=== PATIENT | male | born 2000 | race Caucasian/White ===

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

== ENCOUNTER 2021-04-13 00:40 | Emergency (ER) | payer MEDICAID, SELFPAY ==
--- NOTE | ~2021-04-13 | XR_ITS ---
EXAMINATION: XR CHEST CLINICAL INFORMATION: Cough COMPARISON: 05/05/2020 TECHNIQUE: Frontal view of the chest was obtained. FINDINGS: Lungs are hypoinflated. No focal consolidation is seen. No evidence of pneumothorax, pleural effusion, or pulmonary edema. The cardiomediastinal contour is unremarkable. No acute osseous findings are seen. XR/XR chest 1V IMPRESSION: No acute cardiopulmonary findings.
[2021-04-13 01:13] VITALS: BP 99/49; PULSE 80; RESP 16; TEMP 36.6; O2SAT 97; BMI 21.5
[2021-04-13 01:23] LABS: COVID-19 Test Negative (Negative)
--- NOTE | 2021-04-13 02:12 | ED_ITS ---
HPI - SOB/Dyspnea General Chief Complaint: Dyspnea Stated Complaint: SOB Time Seen by Provider: 04/13/21 02:12 Source: patient Mode of arrival: ambulatory History of Present Illness HPI Narrative: 21-year-old male with history of asthma and now presents with increasing shortness of breath despite using albuterol inhaler and otherwise denies any fever, chills, sore throat, cough, GI or symptoms. Patient describes corresponding chest tightness. Related Data Allergies Allergy/AdvReac Type Severity Reaction Status Date / Time No Known Allergies Allergy Verified 07/05/20 16:40 Review of Systems Review of Systems: Pertinent positives and negatives as stated in HPI 10 point review systems is otherwise negative. PMFSH Past Medical History Source: nursing notes reviewed Medical History Asthma Social History Social History Alcohol intake: unknown Patient Tobacco Use Status: Current everyday Tobacco user Smoked in Last 30 Days: Yes Use of substances other than those prescribed or required for medical reasons: No Substance Use Type: Marijuana Advance Directives: No Advance Directives Information Provided: No Physical Exam Vital Signs: Vital Signs: Last Vital Signs Temp 97.8 F 04/13/21 01:13 Pulse 65 04/13/21 02:39 Resp 18 04/13/21 03:08 BP 99/49 L 04/13/21 01:13 Pulse Ox 97 04/13/21 01:13 Body Mass Index 21.5 VITAL SIGNS: Reviewed. GENERAL: Well developed, well nourished, in no acute distress. HEAD: Normocephalic/atraumatic EYES: PERRLA, EOMI OROPHARYNX: no oral lesions noted, posterior pharynx clear and non-erythematous without noted tonsillar enlargement/erythema/exudates NECK: Supple, no adenopathy LUNGS: Decreased breath sounds, minimal wheeze, no tachypnea SpO2<97> CARDIOVASCULAR: Regular rate and rhythm without noted murmurs ABDOMEN: Soft, non-tender, non-distended with bowel sounds. NEUROLOGIC: Alert and oriented x 4. Course Course Course Narrative: 21-year-old male with history and clinical presentation suggestive of mild asthma exacerbation, but will test for COVID-19 as well. Review of all investigations negative for acute findings and patient was provided with albuterol treatment and on re-evaluation states that he is feeling much better. On auscultation patient now presenting with improved air movement and no evidence of wheezing. Patient was instructed to use his inhaler consistently for the next 24-48 hours and follow-up with his primary care provider. MDM - SOB/Dyspnea Lab Data Labs: Lab Results 04/13/21 Range/Units 00:54 COVID-19 (DENIZ) Negative (Negative) COVID-19 Clin Com See Note Discharge Plan Discharge Clinical Impression: Asthma with exacerbation Patient Disposition: Home, Self-Care Instructions: Asthma (ED) Additional Instructions: 1. Use your albuterol inhaler, 2 puffs, every 4-6 hours for the next 24 hours to ensure continued relief. 2. Follow-up with your primary care provider in the next 1-2 days for re- evaluation and further outpatient management. Return to the ER for acute worsening of symptoms. Referrals: Physician,None [Primary Care Provider] - 2 days
[2021-04-13] MEDS: Albuterol Sulfate (0.083%) 2.5 MG/3 ML VIAL.NEB 7.5 MG INHALE (02:38)
[2021-04-13 02:39] VITALS: PULSE 65; O2SAT 98
--- NOTE | 2021-04-13 03:06 | PC.NURSE ---
pt a&O, no wheezing or retraction. No sign of respiratory distress. pt ordered a respiratory treatment. pt resting quietly
[2021-04-13 03:08] VITALS: RESP 18
== END 2021-04-13 04:09 | disposition home or self-care (01) ==
PROVIDERS: Emergency Provider Student in an Organized Health Care Education/Training Program
DX: J45.901 Unspecified asthma with (acute) exacerbation (principal); Z20.822 Contact with and (suspected) exposure to COVID-19; F17.210 Nicotine dependence, cigarettes, uncomplicated; F12.90 Cannabis use, unspecified, uncomplicated; Z79.899 Other long term (current) drug therapy
CPT/HCPCS: 36415; 71045; 87635; 94640; 94644; 99284

== ENCOUNTER 2022-07-11 10:27 | Emergency (ER) | payer MEDICAID, SELFPAY ==
[2022-07-11 10:33] VITALS: BP 124/67; PULSE 108; RESP 18; TEMP 36.6; O2SAT 98; BMI 22.9
--- NOTE | 2022-07-11 10:43 | ED.NAVMDI ---
HPI - Nausea/Vomiting/Diarrhea General Chief complaint: Abdominal Pain Stated complaint: not feeling well, nauseous Time Seen by Provider: 07/11/22 10:39 Source: patient Mode of arrival: ambulatory Limitations: no limitations History of Present Illness HPI Narrative: 22 yo male presents to the ER for evaluation of nausea, diffuse abdominal ache and body aches along with subjective fevers that started yesterday morning. Patient states after he ate a bagel and smoked his nicotine vape he had sudden onset of not feeling well. He was nauseous with an upset stomach. He vomited once yesterday and has felt like he has had a fever. He has not taken his temperature. He has back and body aches along with some mild headache. He states he has diffuse abdominal discomfort that comes and goes along with persistent nausea. He was able to drink some debbie tania today but that is it. He denies any diarrhea, last BM was 2 days ago and was normal. He does not feel constipated. No known sick contacts. He has not vaccinated for COVID or flu. MD elicited complaint: nausea, vomiting and abdominal pain Onset (ago): day(s) (1) Description of vomiting: food contents Associated nausea: Yes Associated abdominal pain: Yes Location of pain: diffuse Radiation: diffuse Pain consistency: intermittent Severity: moderate Quality: cramping Exacerbating factors: none Relieving factors: none Associated symptoms: myalgias, fever/chills, headaches, loss of appetite, malaise, nausea/vomiting and fatigue Related Data Previous Rx's Medication Instructions Recorded ondansetron 4 mg disintegrating 4 mg PO Q8H PRN nausea and 07/11/22 tablet vomiting #7 tabs Allergies Allergy/AdvReac Type Severity Reaction Status Date / Time No Known Allergies Allergy Verified 07/11/22 10:33 Review of Systems Review of Systems: Constitutional: + Fever, No Chills ENT/Mouth: No sore throat, No Rhinorrhea, No Swallowing Difficulty Cardiovascular: No Chest Pain, No SOB, No Orthopnea, No Edema Respiratory: No Cough, No Sputum, No Wheezing, No dyspnea Gastrointestinal: + Nausea, + Vomiting, No Diarrhea, + abdominal Pain Genitourinary: No Dysuria, No Urinary Frequency, No Hematuria Musculoskeletal: No joint pain, +Myalgias Skin: No Skin Lesions, No rash Neuro: No Weakness, No Numbness, No Dizziness, +Headache Heme/Lymph: No Bruising, No Lymphadenopathy Endocrine: No Polyuria, No Polydipsia Gastrointestinal: Gastrointestinal: Reports nausea PMFSH Past Medical History Medical History Asthma Social History Social History Alcohol intake: unknown Patient Tobacco Use Status: Current everyday Tobacco user Substance Use Type: Marijuana Advance Directives: No Advance Directives Information Provided: Yes Physical Exam Vital Signs: Vital Signs: Last Vital Signs Temp 98 F 07/11/22 10:33 Pulse 108 H 07/11/22 10:33 Resp 16 07/11/22 10:59 BP 124/67 07/11/22 10:33 Pulse Ox 98 07/11/22 10:33 O2 Del Method 07/11/22 10:33 BMI result Body Mass Index 22.9 Appearance: Alert. Oriented X3. No acute distress. Eyes: Pupils equal, round and reactive to light. ENT: Pharynx normal. Moist mucus membranes Neck: Normal inspection. Neck supple. CVS: Normal heart rate and rhythm. Pulses normal. Respiratory: No respiratory distress. Breath sounds normal. Abdomen: Soft and nontender. +BS x4 Skin: Skin warm and dry. Normal skin color. Normal skin turgor. No rashes. Extremities: No lower extremity edema. Neuro: Oriented X 3. Grossly normal, nonfocal. Course Course Course Narrative: 22-year-old otherwise healthy male presents to the ER for evaluation of nausea, vomiting x1, upset stomach, body aches and subjective fevers. Slightly tachycardic but afebrile on arrival. Symptoms seem to be viral. Will check lab workup, COVID swab, flu swab. Hold off on abdominal imaging for now given unremarkable examination. Reevaluation(s) Reevaluation #1: Labs are unremarkable. Patient found to be COVID positive. SpO2 90% on room air. He is afebrile. He is tolerating debbie tania. Comfortable discharge home with p.r.n. Zofran and supportive care. Return precautions were discussed. Stable for DC. Medications Administered Discontinued Medications Generic Name Dose Route Start Last Admin Trade Name Freq PRN Reason Stop Dose Admin Lactated Ringer's 1,000 mls @ 999 mls/hr 07/11/22 10:45 07/11/22 10:57 Lr IV 07/11/22 11:45 999 mls/hr .Q1H1M TIFFANIE Administration Ondansetron HCl 4 mg 07/11/22 10:39 07/11/22 10:56 Ondansetron Hcl 4 Mg/2 Ml Vial IVPUSH 07/11/22 10:40 4 mg ONCE ONE Administration MDM - Nausea/Vomiting/Diarrhea Lab Data Result diagrams: 07/11/22 10:54 07/11/22 10:54 Labs: Lab Results 07/11/22 07/11/22 07/11/22 Range/Units 10:54 10:54 10:54 WBC 10.9 H (4.8-10.8) X10*3/uL RBC 5.33 (4.60-5.80) X10*6/uL Hgb 15.0 (14.0-18.0) g/dl Hct 44.3 (42.0-52.0) % MCV 83.1 (80.0-98.0) fL MCH 28.1 (27.0-33.0) pg MCHC 33.9 (31.0-36.0) g/dl RDW 11.8 (11.0-16.0) % Plt Count 260 (160-400) X10*3/uL MPV 9.4 (9.4-12.4) fL Immature Gran % (Auto) 0.4 (0.0-0.4) % Neut % (Auto) 81.4 H (45-73) % Lymph % (Auto) 5.3 L (20-40) % [place] % (Auto) 12.4 H (2-11) % Eos % (Auto) 0.1 (0-4) % Baso % (Auto) 0.4 (0-2) % Lymph # (Auto) 0.6 L (1.2-4.9) X10*3/uL [place] # (Auto) 1.4 H (0.1-1.2) X10*3/uL Eos # (Auto) 0.0 (0.0-0.4) X10*3/uL Baso # (Auto) 0.0 (0.0-0.2) X10*3/uL Abs Immat Gran (auto) 0.04 H (0.00-0.03) X10*3/uL Absolute Neuts (auto) 8.9 H (2.0-8.3) x10*3/uL Absolute Nucleated RBC 0.000 (0.0-0.012) X10*3/uL Nucleated RBC % (auto) 0.0 (0.0-0.2) /100WBC Sodium 138 (135-145) mmol/L Potassium 3.8 (3.3-5.1) mmol/L Chloride 103 (96-108) mmol/L Carbon Dioxide 25 (22-29) mmol/L Anion Gap 14 (12-20) BUN 6 L (9-16) mg/dL Creatinine 0.92 (0.5-1.4) mg/dL Estim Creat Clear Calc 130.3 Estimated GFR > 60 Random Glucose 105 (60-115) mg/dL Calcium 9.3 (8.4-10.2) mg/dL Magnesium 1.7 (1.6-2.6) mg/dL Total Bilirubin 0.7 (0.0-1.0) mg/dL Direct Bilirubin 0.3 (0.0-0.5) mg/dL AST 16 (5-37) U/L ALT 33 (0-40) U/L Alkaline Phosphatase 78 (39-117) U/L Total Protein 6.9 (6.5-8.0) g/dL Albumin 4.3 (3.5-5.0) g/dL Lipase 14 (8-78) U/L Ethyl Alcohol < 10 mg/dL COVID-19 (DENIZ) (Negative) COVID-19 Clin Com Influenza Type A (MERYL) Negative (Negative) Influenza Type B (MERYL) Negative (Negative) Influenza A & B Note See Note 07/11/22 Range/Units 10:54 WBC (4.8-10.8) X10*3/uL RBC (4.60-5.80) X10*6/uL Hgb (14.0-18.0) g/dl Hct (42.0-52.0) % MCV (80.0-98.0) fL MCH (27.0-33.0) pg MCHC (31.0-36.0) g/dl RDW (11.0-16.0) % Plt Count (160-400) X10*3/uL MPV (9.4-12.4) fL Immature Gran % (Auto) (0.0-0.4) % Neut % (Auto) (45-73) % Lymph % (Auto) (20-40) % [place] % (Auto) (2-11) % Eos % (Auto) (0-4) % Baso % (Auto) (0-2) % Lymph # (Auto) (1.2-4.9) X10*3/uL [place] # (Auto) (0.1-1.2) X10*3/uL Eos # (Auto) (0.0-0.4) X10*3/uL Baso # (Auto) (0.0-0.2) X10*3/uL Abs Immat Gran (auto) (0.00-0.03) X10*3/uL Absolute Neuts (auto) (2.0-8.3) x10*3/uL Absolute Nucleated RBC (0.0-0.012) X10*3/uL Nucleated RBC % (auto) (0.0-0.2) /100WBC Sodium (135-145) mmol/L Potassium (3.3-5.1) mmol/L Chloride (96-108) mmol/L Carbon Dioxide (22-29) mmol/L Anion Gap (12-20) BUN (9-16) mg/dL Creatinine (0.5-1.4) mg/dL Estim Creat Clear Calc Estimated GFR Random Glucose (60-115) mg/dL Calcium (8.4-10.2) mg/dL Magnesium (1.6-2.6) mg/dL Total Bilirubin (0.0-1.0) mg/dL Direct Bilirubin (0.0-0.5) mg/dL AST (5-37) U/L ALT (0-40) U/L Alkaline Phosphatase (39-117) U/L Total Protein (6.5-8.0) g/dL Albumin (3.5-5.0) g/dL Lipase (8-78) U/L Ethyl Alcohol mg/dL COVID-19 (DENIZ) Positive A (Negative) COVID-19 Clin Com See Note Influenza Type A (MERYL) (Negative) Influenza Type B (MERYL) (Negative) Influenza A & B Note Critical Care Time Critical Care Time Critical Care Time: No Discharge Plan Discharge Clinical Impression: COVID-19 Patient Disposition: Home, Self-Care Instructions: Covid-19 Viral Syndrome and Novel Coronavirus (ED) Hey/Ath Additional Instructions: You were found to be COVID-19 POSITIVE today. Your lab workup and oxygen levels were normal. Rest. Drink plenty of fluids. Do not go out in public for the next 9-10 days, as you are not vaccinated. Take the prescribed nausea medication as needed for nausea and upset stomach. Stick to a bland diet where not feeling well. Take over the counter cold/flu medications as needed for your symptoms. Take Tylenol and/or Motrin as needed for fevers and body aches. If you develop new or worsening symptoms call 911 or come back to the ER for further evaluation. Prescriptions: New ondansetron 4 mg tablet,disintegrating 4 mg PO Q8H PRN (Reason: nausea and vomiting) Qty: 7 0RF Stand Alone Forms: Work/School Release
[2022-07-11] MEDS: ondansetron HCL 4 MG/2 ML VIAL IVPUSH (10:56)
[2022-07-11] MEDS: Lactated Ringers 1,000 ML 999 ML IV (10:57)
[2022-07-11 10:59] VITALS: RESP 16
[2022-07-11 10:59] LABS: Basophils Percent Auto 0.4 % (0-2); Eosinophils Percent Auto 0.1 % (0-4); Hematocrit 44.3 % (42.0-52.0); Imm Gran Abs Auto 0.04 X10*3/uL (0.00-0.03); Imm Gran Pct Auto 0.4 % (0.0-0.4); Lymphocytes Absolute Auto 0.6 X10*3/uL (1.2-4.9); Lymphocytes Percent Auto 5.3 % (20-40); MANUAL DIFF FLAG NO; Mean Corpuscular HGB Conc 33.9 g/dl (31.0-36.0); Mean Corpuscular Hemoglobin 28.1 pg (27.0-33.0); Mean Corpuscular Volume 83.1 fL (80.0-98.0); Mean Platelet Volume 9.4 fL (9.4-12.4); Monocytes Absolute Auto 1.4 X10*3/uL (0.1-1.2); Monocytes Percent Auto 12.4 % (2-11); Neutrophils Absolute Auto 8.9 x10*3/uL (2.0-8.3); Neutrophils Percent Auto 81.4 % (45-73); Platelet Count 260 X10*3/uL (160-400); Red Blood Count 5.33 X10*6/uL (4.60-5.80); Red Cell Distribution Width 11.8 % (11.0-16.0); White Blood Count 10.9 X10*3/uL (4.8-10.8)
[2022-07-11 11:18] LABS: COVID-19 Test Positive (Negative); IDNOW Serial# 16C4AD1C
[2022-07-11 11:21] LABS: IDNOW Serial# BCCEAD1C; Influenza A Negative (Negative); Influenza B2 Negative (Negative)
[2022-07-11 11:49] LABS: Alanine Aminotransferase 33 U/L (0-40); Albumin Level 4.3 g/dL (3.5-5.0); Alkaline Phosphatase 78 U/L (39-117); Anion Gap 14 (12-20); Aspartate Amino Transferase 16 U/L (5-37); Bilirubin Direct 0.3 mg/dL (0.0-0.5); Bilirubin Total 0.7 mg/dL (0.0-1.0); Blood Urea Nitrogen 6 mg/dL (9-16); Calcium 9.3 mg/dL (8.4-10.2); Carbon Dioxide 25 mmol/L (22-29); Chloride 103 mmol/L (96-108); Creatinine Clr Calc Pharmacy 130.3; Estimated Glomerular Filt Rate > 60; Ethanol < 10 mg/dL; Glucose Random 105 mg/dL (60-115); Lipase 14 U/L (8-78); Magnesium 1.7 mg/dL (1.6-2.6); Potassium 3.8 mmol/L (3.3-5.1); Sodium 138 mmol/L (135-145); Total Protein 6.9 g/dL (6.5-8.0)
== END 2022-07-11 12:01 | disposition home or self-care (01) ==
PROVIDERS: Physician Assistant; Emergency Provider Emergency Medicine
DX: U07.1 COVID-19 (principal); F17.200 Nicotine dependence, unspecified, uncomplicated; F12.90 Cannabis use, unspecified, uncomplicated
CPT/HCPCS: 36415; 80048; 80076; 82077; 83690; 83735; 85025; 87502; 87635; 96374; 99284; J2405

== ENCOUNTER 2024-02-05 15:52 | Outpatient (REF) | payer MEDICAID, SELFPAY ==
[2024-02-05 17:56] LABS: C Reactive Protein 1.19 mg/dL (< or = 0.50)
[2024-02-05 17:57] LABS: Rheumatoid Factor < 13.0 IU/mL (<15.0)
[2024-02-05 18:21] LABS: Erythrocyte Sedimentation Rate 6 MM/HR (0-15)
[2024-02-05 18:26] LABS: Influenza A PCR NEGATIVE (Negative); Influenza B PCR NEGATIVE (Negative); Resp Syncy Virus RNA Qual PCR NEGATIVE (Negative); SARS COV2 PCR INHOUSE NEGATIVE (Negative)
[2024-02-09 13:03] LABS: Lyme Abs Screen <0.90 index
[2024-02-09 13:58] LABS: Cyclic Citrullinated Peptide <16 UNITS
== END 2024-02-05 15:53 | disposition home or self-care (01) ==
LOC: HO.CHCLDS 15:52
PROVIDERS: Visit Provider Family Medicine
DX: M25.50 Pain in unspecified joint (principal)
CPT/HCPCS: 0241U; 85652; 86140; 86200; 86431; 86617; 86618

== ENCOUNTER 2024-04-22 14:03 | Outpatient (REF) | payer MEDICAID, SELFPAY ==
[2024-04-22 16:49] LABS: CT PCR NOT DETECTED (Not Detect.); NG PCR NOT DETECTED (Not Detect.)
== END 2024-04-22 14:04 | disposition home or self-care (01) ==
LOC: HO.CHCLDS 14:03
PROVIDERS: Visit Provider Family Medicine
DX: Z00.00 Encounter for general adult medical examination without abnormal findings (principal)
CPT/HCPCS: 87491; 87591

== ENCOUNTER 2025-08-05 09:34 | Outpatient (REF) | payer MEDICAID, SELFPAY ==
--- OUTSIDE RECORDS SUMMARY | 2025-08-05 08:30 | XMS_ITS | Encounter Summary ---
Author Organization [employer] Address [address] [facility] [address] [place] [address] Care Team Providers Care Bilingual Instructor Name Role Phone Mandy Bailey MD Primary Care Provider [phone] Sarita Chavez Unavailable Reason for Visit * Reason Comments Joint Pain Encounter Details Date Type Department Care Team ([facility] Contact Info) Description 08/05/2025 8:30 AM EST Office Visit [facility] PEDS [address] [place], [place] [phone] Alexandra Rivera FNP [address] [place], [place] [phone] STD exposure (Primary Dx); Viral illness Social History Tobacco Use Types Packs/Day Years Used Date Smoking Tobacco: Never Passive Smoke Exposure: Never Smokeless Tobacco: Never Tobacco Cessation:Counseling Given: Not Answered Alcohol Use Standard Drinks/Week Comments Never 0 (1 standard drink = 0.6 oz pur e alcohol) Depression Answer Date Recorded Patient Health Questionnaire-9 Score 3 12/20/2024 Patient Health Questionnaire-9 Score 3 12/20/2024 Last PHQ-9: Questionnaire Data Not on file 0 12/20/2024 Housing Stability Answer Date Recorded What is your housing situation today? I have ozzie romero 08/05/[address] you li ve. Do you have problems with any of the following? None of the above 08/05/2025 Food Insecurity Answer Date Recorded Within the past 12 months, y ou worried that your food would run out before you got money to buy more: Never True 08/05/2025 Within the past 12 months,th e food you bought just didn't last and you didn't have enough money to get more: Never True Transportation Answer Date Recorded In the past 12 months, has l ack of transportation kept you from medical appts, meetings, work or from getting things needed for daily living? No 08/05/2025 Utilities Answer Date Recorded In the past 12 months, has t he electric, gas, oil or water company threatened to shut off services in your home? No 08/05/2025 Depression Answer Date Recorded Patient Health Questionnaire-2 Score 0 12/20/2024 Internet Access Answer Date Recorded Internet Access Q1 Yes 08/05/2025 Internet Access Q2 Not on file 08/05/2025 Sex and Gender Information Value Date Recorded Sex Assigned at Male 06/17/2022 10:21 AM EDT Legal Sex Male 10:21 AM EDT Gender Identity Choose not to disclose 10:21 AM EDT Sexual Orientation Choose not to disclose 2021 10:21 AM EDT documented as of this encounter Last Filed Vital Signs Vital Sign Reading Time Taken Comments Blood Pressure 124/68 08/05/2025 8:42 AM EST Pulse 87 08/05/2025 8:42 AM EST Temperature 37.1 C (98.8 F) 08/05/2025 8:42 AM EST Respiratory Rate 20 08/05/2025 8:42 AM EST Oxygen Saturation - - Inhaled Oxygen Concentration - - Weight 74.8 kg (165 lb) 08/05/2025 8:42 AM EST Height 175.9 cm (5' 9.25 ) 08/05/2025 8:42 AM ES T Body Mass Index 24.19 08/05/2025 8:42 AM EST documented in this encounter Plan of Treatment Scheduled Orders Name Type Priority Associated Diagnoses Orde r Schedule HIV-1/2 Antigen and Antibodies, Fourth Generation, with Reflexes Lab Routine STD exposure Expected: 08/05/2025 (Approximate), Expires: 08/05/2026 RPR (Monitor) with Reflex to Titer Lab Routine STD exposure Expected: 08/05/2025, Expires: 08/05/2026 Hepatitis C Antibody with Reflex to HCV, RNA, Quantitative, Real-Time PCR Lab Routine STD exposure Expected: 08/05/2025, Expires: 08/05/2026 Chlamydia/Trichomonas/Neis seria gonorrhoeae, PCR, Urine Lab Routine STD exposure Expected: 08/05/2025 (Approximate), Expires: 08/05/2026 documented as of this encounter Procedures Procedure Name Priority Date/Time Associated Diagnosis Comments POCT INFLUENZA A Routine 08/05/2025 9:53 AM EST Viral illness POCT INFLUENZA B Routine 08/05/2025 9:52 AM EST Viral illness POCT RAPID COVID ANTIGEN Routine 08/05/2025 9:50 AM EST Viral illness documented in this encounter Results * POCT Rapid Influenza A OSOM (08/05/2025 9:53 AM EST) [facility] Rapid Influenza A Ag Negative Negative, Indeterminate QC Media Lot # [id number] Lot# Expiration Date Swab Nasopharyngeal structure / Unknown 08/05/2025 9:53 AM EST us Morris Phalen ACCOUNT FINANCIAL MANAGER POINT OF CARE TEST ENTER/EDIT ORDERABLES Final Result * POCT Rapid Influenza B OSOM (08/05/2025 9:52 AM EST) [facility] Rapid Influenza B Ag Negative Negative, Indeterminate QC Media Lot # [id number] Lot# Expiration Date , Swab 08/05/2025 9:52 AM EST us Alexanrda Rivera ACCOUNT FINANCIAL MANAGER POINT OF CARE TEST ENTER/EDIT ORDERABLES Final Result * POCT Rapid Covid-19 BinaxNOW (08/05/2025 9:50 AM EST) [facility] Rapid COVID Ag Negative QC Media Lot # [id number] Lot# Expiration Date ,026 Swab 08/05/2025 9:50 AM EST Alexandra Phalen ACCOUNT FINANCIAL MANAGER POINT OF CARE TEST ENTER/EDIT ORDERABLES Final Result documented in this encounter Visit Diagnoses Diagnosis STD exposure- Primary Viral illness Unspecified viral infection, in conditions classified elsewhere and of unspecified site documented in this encounter Additional Health Concerns Assessment Noted Time PHQ-9 Depression Total Score: 3 12/21/19 25 11:53 AM EDT documented as of this encounter Care Teams Bilingual Instructor Relationship Specialty Start Date End Date Mandy Bailey MD [address] [place] [address] PCP - General Family Medicine 01/04/22 Sarita Chavez 07/29/25 Yenni Arthur Program MgrSeismograph Operator 05/23/25 documented as of this encounter
--- OUTSIDE RECORDS SUMMARY | 2025-08-05 10:21 | XMS_ITS | Encounter Summary ---
Author Organization [employer] Address [address] [place] [address] Care Team Providers Care Seam Rubbing Machine Operator Name Role Phone Mandy Bailey MD Primary Care Provider [phone] Sarita Chavez Unavailable Encounter Details Date Type Department Care Team (Latest Contact Info) Description 08/05/2025 Travel Social History Tobacco Use Types Packs/Day Years Used Date Smoking Tobacco: Never Passive Smoke Exposure: Never Smokeless Tobacco: Never Alcohol Use Standard Drinks/Week Comments Never 0 [...] AM EDT documented as of this encounter Plan of Treatment Not on file documented as of this encounter Visit Diagnoses Not on filedocumented in this encounter Additional Health Concerns Assessment Noted Time PHQ-9 Depression Total Score: 3 12/21/19 11:53 AM EDT documented as of this encounter Care Teams Seam Rubbing Machine Operator Relationship Specialty Start Date End Date Mandy Bailey MD [address] [place] [id number] PCP - General Family Medicine 01/04/22 Sarita Chavez 07/29/25 Yenni Arthur Bending Machine Set Up OperatorGlass Smoother 05/23/25 documented as of this encounter
--- OUTSIDE RECORDS SUMMARY | 2025-08-05 10:21 | XMS_ITS | Encounter Summary ---
Author Organization [employer] Address [address] [facility] [address] [place] [address] Care Team Providers Care Pt Skilled Name Role Phone Mandy Bailey MD Primary Care Provider [phone] Sarita Chavez Unavailable Reason for Visit * Reason Onset Date Comments Nurse Triage 08/02/2025 Encounter Details Date Type Department Care Team ([facility] st Contact Info) Description 08/02/2025 Telephone [facility] MED [facility] PEDS [address] [place], [place] [phone] Mandy Bailey MD [address] [place] [address] Nurse Triage Social History Tobacco Use Types Packs/Day Years [...] is your housing situation today? I have ozziepeyman romero 06/17/[address] you li ve. Do you have problems with any of the following? None of the above 06/17/2023 Food Insecurity Answer Date Recorded Within the past 12 months, y ou worried that your food would run out before you got money to buy more: Never True 06/17/2023 Within the past 12 months,th e food you bought just didn't last and you didn't have enough money to get more: Never True Transportation Answer Date Recorded In the past 12 months, has l ack of transportation kept you from medical appts, meetings, work or from getting things needed for daily living? No 06/17/2023 Utilities Answer Date Recorded In the past 12 months, has t he electric, gas, oil or water company threatened to shut off services in your home? No 06/17/2023 Depression Answer Date Recorded Patient Health Questionnaire-2 Score 0 12/20/2024 Sex and Gender Information Value Date Recorded Sex Assigned at Male 06/17/2022 10:21 AM EDT Legal Sex Male 10:21 AM EDT Gender Identity Choose not to disclose 10:21 AM EDT Sexual Orientation Choose not to disclose 2021 10:21 AM EDT documented as of this encounter Miscellaneous Notes * Telephone Encounter - Ale Arroyo RN - 08/02/2025 10:59 AM EST Pt presented to [facility] 07/28/25 for evaluation for resolved chest pain x 3 days. ECG normal sinus rhythm. Pt left AMA prior to evaluation. T/C to pt who denies current symptoms. Reports that starting last week, he has been having intermittent 5/10 upper chest pain which happens on the right and left side and radiates to his fingers bilaterally. Pt states that he does not have sob, vomiting or any other symptoms when this occurs. Reports he feels this more when he is lying down. Reports pmh of anxiety. Reports there is mold in his home and he is not sure if this is related. Pt agrees to evaluation with [facility] provider 08/05/25. ED precautions reviewed. Encouraged pt to call if symptoms return or w orsen. Protocol Used: No Protocol Available (Adult) Protocol-Based Disposition: See in Office or Video Visit within 2 Weeks Video visit offer not recorded Positive Triage Question: * Nursing judgment * All higher-acuity triage questions were negative. Care Advice Discussed: * Reasons To Call Back - New symptoms develop - You become worse * Telephone Encounter - Sarkis Duncan - 08/02/2025 9:16 AM EST Patient calling to report ED visit on : Date: 07/28 Hospital: [facility] Seen for: arm pain , chest pain Symptomatic Yes *if yes message should go to Triage Patient advised will forward to team nurse for follow up Contact pt at [phone] documented in this encounter Plan of Treatment Not on file documented as of this encounter Visit Diagnoses Not on filedocumented in this encounter Additional Health Concerns Assessment Noted Time PHQ-9 Depression Total Score: 3 12/21/19 11:53 AM EDT documented as of this encounter Care Teams Pt Skilled Relationship Specialty Start Date End Date Mandy Bailey MD [address] [place] [address] PCP - General Family Medicine 01/04/22 Sarita Chavez 07/29/25 Yenni Arthur Psychiatric Nurse PractitionerMicrowave Radio Technician 05/23/25 documented as of this encounter
--- OUTSIDE RECORDS SUMMARY | 2025-08-05 10:21 | XMS_ITS | Encounter Summary ---
Author Organization [employer] Address [address] [facility] [address] [place] [address] Care Team Providers Care Printing Technician Name Role Phone Mandy Bailey MD Primary Care Provider [phone] Sarita Chavez Unavailable Reason for Visit * Reason Onset Date Comments Nurse Triage 12/08/2024 Encounter Details Date Type Department Care Team ([facility] st Contact Info) Description 12/08/2024 Telephone [facility] MED[facility] [address] [place] [address] Mandy Bailey MD [address] [place] [address] Nurse Triage Social History Tobacco Use Types Packs/Day Years Used Date Smoking Tobacco: Never Passive Smoke Exposure: Never Smokeless Tobacco: Never Alcohol Use Standard Drinks/Week Comments Never 0 (1 standard drink = 0.6 oz pur e alcohol) Depression Answer Date Recorded Patient Health Questionnaire-9 Score 0 04/22/2024 Patient Health Questionnaire-9 Score 0 04/22/2024 Last PHQ-9: Questionnaire Data Not on file 0 04/22/2024 Housing Stability Answer Date Recorded What is your housing situation today? I have ozzie sing 06/17/[address] you li [...] Date Recorded Patient Health Questionnaire-2 Score 0 04/22/2024 Sex and Gender Information Value Date Recorded Sex Assigned at Male 06/17/2022 10:21 AM EDT Legal Sex Male 10:21 AM EDT Gender Identity Choose not to disclose 10:21 AM EDT Sexual Orientation Choose not to disclose 2021 10:21 AM EDT documented as of this encounter Miscellaneous Notes * Telephone Encounter - Maru Martinez RN - 12/08/2024 3:51 PM EDT Triage call Pt reports increased headaches which start in eyes and go to sides of head. Pt reports the sun causes the headaches to start. Anytime the sun is out Pt stays in the house to keep from getting the headaches. Neg for vision loss or change. Pt doesn't wear glasses or sun glasses. Pt is offered apt in [facility] 12/09 but, declines due to work schedule and asks production underwriter to look at next two mondays for apts. ASK apt with PCP 12/20/24 @ 1130am. Pt agrees with disposition. Pt is advised to try iceto forhead for 20min with rest, tylenol/ibuprofen and try sun glasses when outside. Pt agrees to try these things. Insurance is verified as active prior to booking.. Protocol Used: Headache (Adult) Protocol-Based Disposition: See in Office or Video Visit within 2 Weeks Video visit offer not recorded Positive Triage Question: * Headache is a chronic symptom (recurrent or ongoing AND lasting > 4 weeks) * All higher-acuity triage questions were negative Care Advice Discussed: * Cold Pack for Headache * Reasons To Call Back - Severe headache lasts over 2 hours after pain medicine - Headache lasts over 72 hours - Stiff neck occurs (can't touch chin to chest) - You become worse * Telephone Encounter - Lashay Mirza - 12/08/2024 3:22 PM EDT Symptom: Vision Loss or Change Outcome: Schedule an appointment to be seen within 24 hours Reason: Caller denied all higher acuity questions The caller accepted this outcome. documented in this encounter Plan of Treatment Not on file documented as of this encounter Visit Diagnoses Not on filedocumented in this encounter Additional Health Concerns Assessment Noted Time PHQ-9 Depression Total Score: 0 04/22/20 24 10:12 AM EDT documented as of this encounter Care Teams Printing Technician Relationship Specialty Start Date End Date Mandy Bailey MD [address] [place] [address] PCP - General Family Medicine 01/04/22 Sarita Chavez 07/29/25 Yenni Arthur Pari Mutuel Ticket SellerMachine Quilt Stuffer 05/23/25 documented as of this encounter
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
--- OUTSIDE RECORDS SUMMARY | 2025-08-05 10:21 | XMS_ITS | Encounter Summary ---
Author Organization [employer] Address [address] [facility] 7t [place] [address] Care Team Providers Care Freelance Court Reporter Name Role Phone Mandy Bailey MD Primary Care Provider [phone] Sarita Chavez Unavailable Encounter Details Date Type Department Care Team ([facility] st Contact Info) Description 02/11/2024 Orders Only [facility] PEDS [address] [place], [place] [phone] Gumaro Suarez MD [address] [place] [address] Social History Tobacco Use Types Packs/Day Years Used Date Smoking Tobacco: Never Passive Smoke Exposure: Never Smokeless Tobacco: Never Alcohol Use Standard Drinks/Week Comments Never 0 (1 standard drink = 0.6 oz pur e alcohol) Depression Answer Date Recorded Patient Health Questionnaire-9 Score 13 03/17/2023 Housing Stability Answer Date Recorded What is your housing situation today? I have ozzie romero 06/17/[address] you [...] Answer Date Recorded Patient Health Questionnaire-2 Score 3 03/17/2023 Sex and Gender Information Value Date Recorded [...] Assessment Noted Time PHQ-9 Depression Total Score: 13 023 2:57 PM EDT documented as of this encounter Care Teams Freelance Court Reporter Relationship Specialty Start Date End Date Mandy Bailey MD [address] [place] [id number] PCP - General Family Medicine 01/04/22 Sarita Chavez 07/29/25 Yenni Arthur Master YachtDye Box Operator 05/23/25 documented as of this encounter
--- OUTSIDE RECORDS SUMMARY | 2025-08-05 10:21 | XMS_ITS | Clinical Summary ---
Author Organization [facility] Address [address] [facility] [address] [place] [phone] Phone Care Team Providers Care Mill Control Operator Name Role Phone Pcp, Unknown Primary Care Provider Unavailabl e Allergies No known active allergies Medications ondansetron (ZOFRAN-ODT) 4 MG disintegrating tablet Take 1 tablet (4 mg total) by mouth every 8 (eight) hours as needed. 20 tablet 04/14/20 21 Active Additional Information Patient not taking.Reported on 08/19/2021 Social History Tobacco Use Types Packs/Day Years Used Date Smoking Tobacco: Never Assessed Education Answer Date Recorded Are you interested in more education? Not on romie e 12/14/2022 Are you concerned about learning? Not on file 12/14/2022 No 12/14/2022 No 12/14/2022 Digital Access Answer Date Recorded No 01/12/2023 No 01/12/2023 No 01/12/2023 Reliable internet access at home? Not on file 01/12/2023 Device with a working camera? Not on file Intimate Partner Violence Answer Date R ecorded Are you denied basic needs s uch as food, clothing, or medical care? No 07/29/2023 In the past 12 months have y ou been in a relationship with a person who hurts, threatens, or tries to control you? No 07/29/2023 Are you denied basic needs s uch as food, clothing, or medical care? No 07/29/2023 In the past 12 months have y ou been in a relationship with a person who hurts, threatens, or tries to control you? No 07/29/2023 Sex and Gender Information Value Date Recorded Sex Assigned at Male 08/19/2021 2:24 AM EST Legal Sex Male 10:22 PM EDT Gender Identity Male 08/19/2021 2:24 AM EST Sexual Orientation Straight 08/19/2021 2: 24 AM EST Last Filed Vital Signs Vital Sign Reading Time Taken Comments Blood Pressure 108/64 07/29/2023 10:41 PM EST Pulse 78 07/29/2023 10:41 PM EST Temperature 37.2 C (99 F) 07/29/2023 10:41 PM EST Respiratory Rate 20 07/29/2023 10:41 PM EST Oxygen Saturation 99% 07/29/2023 10:41 PM EST Inhaled Oxygen Concentration - - Weight 66.2 kg (146 lb) 07/29/2023 9:39 PM EST Height 177.8 cm (5' 10 ) 07/29/2023 9:39 PM EST Body Mass Index 20.95 07/29/2023 9:39 PM EST Plan of Treatment Health Maintenance Due Date Last Done Comments DEPRESSION SCREENING 2013 SMOKING Hx and SMOKELESS TOB ACCO SCREENING 2014 HPV VACCINES (1 - Male 3-dos e series) 01/21/2016 HEPATITIS C SCREENING 2019 HIV ONE-TIME SCREENING (18-6 5 YEARS) 2019 Adult Td,Tdap Booster 09/16/2021 09/16/2011 INFLUENZA VACCINE (#1) 2025 COVID-19 VACCINE (1 - 2024-2 6 season) 2025 MENINGOCOCCAL VACCINES (ACWY) Aged Out 09/16/2011 No longer eligible based on patient's age to complete this topic HEPATITIS A VACCINES Aged Out No long er eligible based on patient's age to complete this topic HIB VACCINES Aged Out No longer eligi ble based on patient's age to complete this topic MENINGOCOCCAL VACCINES (B) Aged Out N o longer eligible based on patient's age to complete this topic PNEUMOCOCCAL VACCINES (0-49 years) Aged Out No longer eligible based on patient's age to complete this topic Medical Devices Not on file Insurance [facility] C3 ACO [facility] C3 ACO [facility] C3 ACO [facility] C3 ACO [facility] C3 ACO [facility] C3 ACO [facility] C3 ACO [facility] C3 ACO [facility] C3 ACO Care Teams Mill Control Operator Relationship Specialty Start Date End Date Pcp, Unknown PCP - General 07/29/23 Additional Source Comments The information contained in this document represents components of the legal health record. It is not the complete legal health record.[facility]
--- OUTSIDE RECORDS SUMMARY | 2025-08-05 10:21 | XMS_ITS | Encounter Summary ---
Author Organization [employer] Address [address] [facility] 7t [place] [address] Care Team Providers Care Trauma Surgeon Name Role Phone Mandy Bailey MD Primary Care Provider [phone] Sarita Chavez Unavailable Encounter Details Date Type Department Care Team ([facility] st Contact Info) Description 07/22/2022 Telephone [facility] MED & PEDS [address] [place], [place] [phone] Mandy Bailey MD [address] [place] [address] Social History Tobacco Use Types Packs/Day Years Used Date Smoking Tobacco: Never Assessed Sex and Gender Information Value Date Recorded Sex Assigned at Male 06/17/2022 10:21 AM EDT Legal Sex Male 10:21 AM EDT Gender Identity Choose not to disclose 10:21 AM EDT Sexual Orientation Choose not to disclose 2021 10:21 AM EDT documented as of this encounter Miscellaneous Notes * Telephone Encounter - Nataly Bell - 07/22/2022 10:52 AM EST MOM of Patient calling to report ED visit on 07/11 at [facility]. Diagnosed with Covid Positive. Patient advised will forward to team nurse for follow up. Pt having sore throat for 1 day. UZBEK SPEAKER documented in this encounter Plan of Treatment Not on file documented as of this encounter Visit Diagnoses Not on filedocumented in this encounter Care Teams Trauma Surgeon Relationship Specialty Start Date End Date Mandy Bailey MD [address] [place] [address] PCP - General Family Medicine 01/04/22 Sarita Chavez 07/29/25 Yenni Arthur Chief Deputy Court ClerkSupport Engineer 05/23/25 documented as of this encounter
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
--- OUTSIDE RECORDS SUMMARY | 2025-08-05 10:21 | XMS_ITS ---
Author Organization [email or web address] Address [address] [facility] 7t [place] [address] Care Team Providers Care Email Specialist Name Role Phone Mandy Bailey MD Primary Care Provider [phone] Sarita Chavez Unavailable CHW Complex Status:Outreach In Progress (Enrolling) Start date:07/29/2025 Enrollment reason:ADT Feed Overview CP Assigned Patient- Pt went to [facility] ED on 07/28/25. Case Team Name Relationship Phone Sarita Chavez(Responsible Staff) [phone] Continued Care and Services Coordination
[2025-08-06 01:50] LABS: CT PCR Urine NOT DETECTED (Not Detect.); NG PCR Urine NOT DETECTED (Not Detect.)
[2025-08-08 04:03] LABS: HIV Num 1 0.05 S/CO (0.00-0.99); ~HepC Num1 0.14 S/CO (0.00-0.79); ~Hepatitis C Antibody Nonreactive (Nonreactive)
== END 2025-08-05 09:35 | disposition home or self-care (01) ==
LOC: HO.CHCLDS 09:34
PROVIDERS: Visit Provider Registered Nurse
DX: Z20.2 Contact with and (suspected) exposure to infections with a predominantly sexual mode of transmission (principal); Z11.4 Encounter for screening for human immunodeficiency virus [HIV]; Z11.59 Encounter for screening for other viral diseases
CPT/HCPCS: 86592; 86803; 87389; 87491; 87591